=== PATIENT | female | born 1950 | race American Indian/Alaskan Native ===

== ENCOUNTER → 2021-03-24 08:00 | Outpatient (CLI) | payer OTHER | END | disposition home or self-care (01) | LOC: PPH VACUNA 08:00 | DX: Z23 Encounter for immunization (principal) ==

== ENCOUNTER 2022-11-04 09:49 | Outpatient (CLI) | payer OTHER | END 2022-11-04 09:55 | disposition home or self-care (01) | LOC: RX STUDY 09:49 | DX: K57.20 Diverticulitis of large intestine with perforation and abscess without bleeding (principal); Z93.3 Colostomy status; R10.9 Unspecified abdominal pain; K62.5 Hemorrhage of anus and rectum ==

== ENCOUNTER 2022-12-28 09:39 | Inpatient (IN) | payer OTHER ==
[~2022-12-28] VITALS: Ht 154.9 cm; Wt 50.8 kg
[2023-01-10] MEDS ORDERED: HYOSCYAMINE0.125 M1 SL (12:09)
[2023-01-10] MEDS ORDERED: LEVSIN/SL0.125 MG SL (12:10)
[2023-01-10] MEDS ORDERED: INTESTINEX680 M1 PO (12:10)
[2023-01-10] MEDS ORDERED: TRAM1TAB98 PO (12:10)
== END 2023-01-10 12:52 | disposition home or self-care (01) | DRG 331 ==
LOC: SURG 01-01 11:00 → O/R 01-07 11:24 → SURH 01-07 11:24
PROVIDERS: ADMIT Surgery; ATTEND Surgery
PROC: 0DBP4ZZ Excision of Rectum, Percutaneous Endoscopic Approach (ICD-10-PCS; 2023-01-07)
PROC: 0DSN4ZZ Reposition Sigmoid Colon, Percutaneous Endoscopic Approach (ICD-10-PCS; 2023-01-07)
PROC: 0DNN4ZZ Release Sigmoid Colon, Percutaneous Endoscopic Approach (ICD-10-PCS; 2023-01-07)
PROC: 4A1BXSH Monitoring of Gastrointestinal Vascular Perfusion using Indocyanine Green Dye, External Approach (ICD-10-PCS; 2023-01-07)
PROC: 0DTN4ZZ Resection of Sigmoid Colon, Percutaneous Endoscopic Approach (ICD-10-PCS; principal; 2023-01-07 07:00)
PROC: 0WUF4JZ Supplement Abdominal Wall with Synthetic Substitute, Percutaneous Endoscopic Approach (ICD-10-PCS; 2023-01-08)
DX: K57.20 Diverticulitis of large intestine with perforation and abscess without bleeding (principal); N73.6 Female pelvic peritoneal adhesions (postinfective); Q89.9 Congenital malformation, unspecified

== ENCOUNTER → 2024-11-06 | Emergency (ER) | payer OTHER ==
[~2024-11-06] VITALS: Ht 154.9 cm; Wt 51.7 kg
[~2024-11-06] MED LIST: HYOSCYAMINE0.125 M1 SL; INTESTINEX680 M1 PO; LEVSIN/SL0.125 MG SL; LIDOCAINE HCL VISCOUS 20MG/ML BLIST 15ML MM ONE; MAG HYDROX/ALUMINUM HYD/SIMETH 30 ML BLIST.PACK PO ONE; TRAM1TAB98 PO
[2024-11-06 14:37] VITALS: O2SAT 100
== END | disposition left against medical advice (07) ==
LOC: ER 13:35
DX: Z53.21 Procedure and treatment not carried out due to patient leaving prior to being seen by health care provider (principal)